=== PATIENT | female | born 2000 ===

== ENCOUNTER 2022-02-18 10:42 | Outpatient (CLI) | payer OTHER | END 2022-02-18 12:09 | disposition home or self-care (01) | LOC: PRENATAL 10:42 | PROVIDERS: ATTEND Obstetrics & Gynecology Maternal & Fetal Medicine | DX: O36.80X0 Pregnancy with inconclusive fetal viability, not applicable or unspecified (principal); Z36.0 Encounter for antenatal screening for chromosomal anomalies; Z3A.14 14 weeks gestation of pregnancy ==

== ENCOUNTER 2022-03-31 13:05 | Outpatient (CLI) | payer OTHER | END 2022-03-31 14:15 | disposition home or self-care (01) | LOC: PRENATAL 13:05 | PROVIDERS: ATTEND Obstetrics & Gynecology Maternal & Fetal Medicine | DX: O35.0XX0 Maternal care for (suspected) central nervous system malformation in fetus, not applicable or unspecified (principal); O35.3XX0 Maternal care for (suspected) damage to fetus from viral disease in mother, not applicable or unspecified; Z3A.20 20 weeks gestation of pregnancy ==